=== PATIENT | female | born 1975 | race Asian ===

== ENCOUNTER 2018-05-14 06:35 | Outpatient (CLI) | payer OTHER ==
--- NOTE | 2018-05-14 08:46 | ULT ---
RIGHT UPPER QUADRANT ULTRASOUND: HISTORY: Right upper quadrant pain. FINDINGS: The liver, spleen, kidneys, pancreas, and visualized portions of the aorta and IVC appear normal. No shadowing gallstones, bladder wall thickening, or pericholecystic fluid is seen. The common duct me asures 3 mm in diameter. There is a 6 x 6 x 8 mm echogenic nonshadowing focus arising from the wall of the gallbladder without mobility, consistent with polyp. No free fluid is seen. IMPRESSION: An 8 mm gallbladder polyp. Surgical consultation is recommended. POS: [facility]
== END 2018-05-14 06:36 | disposition home or self-care (01) ==
LOC: BICULT 06:35
PROVIDERS: ATTEND Internal Medicine
DX: R10.84 Generalized abdominal pain (principal); K82.4 Cholesterolosis of gallbladder
CPT/HCPCS: 76700

== ENCOUNTER 2018-06-05 06:13 | Day surgery (SDC) | payer OTHER ==
[2018-06-04 15:56] VITALS: BMI 30.1
[2018-06-05 07:01] LABS: #Eosinphils 0.1 thou/uL (0.0-0.7); #Lymphocytes 1.5 thou/uL (1.20-3.40); #Monocytes 0.4 thou/uL (0.11-0.59); #Neutrophils 4.5 thou/uL (1.40-6.50); %Basophils 0.3 % (0.0-1.0); %Eosinophils 1.8 % (0.0-10.0); %Lymphocytes 23.2 % (21.0-51.0); %Monocytes 5.8 % (0.0-10.0); %Neutrophils 68.9 % (42.0-75.0); Hemoglobin 12.2 g/dL (12.0-16.0); Mean Corpuscular HGB CONC 30.8 g/dL (32.0-36.0); Mean Corpuscular Hemoglobin 21.6 pg (27.0-31.0); Mean Platelet Volume 8.2 fL (7.4-10.4); Platelet Count 333 thou/uL (130-400); RBC Distribution Width 12.5 % (11.5-14.5); Red Blood Cell (RBC) Count 5.67 mill/uL (4.20-5.40); White Blood Cell (WBC) Count 6.5 thou/uL (4.8-10.8)
[2018-06-05] MEDS ORDERED: CEFAZOLIN 2 GM/50 ML BAG ONE (07:06)
[2018-06-05] MEDS ORDERED: Midazolam HCl 2 mg/2 ml Vial ONE (07:16)
[2018-06-05] MEDS ORDERED: Fentanyl 100 MCG/2 ML VIAL ONE ×3 (07:16→10:53)
[2018-06-05 07:19] LABS: Anion Gap 13 mmol/L (10-20); BUN (Urea Nitrogen) 11 mg/dL (7.0-18.7); Calc. Creatinine Clearance 105 mL/min (70-130); Calcium 9.5 mg/dL (7.8-10.44); Carbon Dioxide 24 mmol/L (22-29); Chloride 107 mmol/L (98-107); Estimated GFR-MDRD 73; Glucose 104 mg/dL (70-105); Potassium 3.8 mmol/L (3.5-5.1); Sodium 140 mmol/L (136-145)
[2018-06-05 07:26] LABS: Hypochromia SLIGHT = 6-15 cells (100X) (0-5/hpf); MDiff Complete? YES; Microcytosis MODERATE=15-30 cells (100X) (0-5/hpf); PLT Morphology Comment Appears Adequate; Polychromasia SLIGHT = 2-3 cells (100X) (0-2/hpf)
[2018-06-05] MEDS ORDERED: Bupivacaine/Epinephrine 0.25% 30 ML VIAL ONE (07:50)
[2018-06-05 08:21] LABS: ALT (SGPT) 10 U/L (8-55); AST (SGOT) 18 U/L (5-34); Albumin 4.5 g/dL (3.5-5.0); Alkaline Phosphatase 65 U/L (40-150); Bilirubin, Total 0.4 mg/dL (0.2-1.2); Globulin 3.6 g/dL (2.4-3.5); Protein, Total 8.1 g/dL (6.0-8.3)
[2018-06-05] MEDS ORDERED: SUGAMMADEX SODIUM 200 MG/2 ML VIAL ONE (10:03)
[2018-06-05] MEDS ORDERED: HYDROcodone/Acetaminophen 5/325 mg Tablet ONE (13:53)
[2018-06-05] MEDS ORDERED: Dexamethasone 20 MG/5 ML VIAL ONE (16:28)
[2018-06-05] MEDS ORDERED: Glycopyrrolate 0.2 MG/ML 5 ML SYRINGE ONE (16:28)
[2018-06-05] MEDS ORDERED: Ondansetron PF 4 MG/2 ML Vial ONE (16:28)
[2018-06-05] MEDS ORDERED: Lidocaine 1% PF 5 ML VIAL ONE (16:28)
[2018-06-05] MEDS ORDERED: PROPOFOL 200 MG/20 ML VIAL ONE (16:28)
--- NOTE | 2018-06-10 09:02 | PDOC.OP ---
Operative Note - Operative Note Operative Note: PROCEDURE: Laparoscopic cholecystectomy SURGEON: Michelle Zambrano M.D. DATE OF PROCEDURE: 06/05/2018 PREOPERATIVE DIAGNOSIS: Cholecystitis with possible gallbladder polyp versus adherent sludge POSTOPERATIVE DIAGNOSIS: Cholecystitis with possible gallbladder polyp versus adherent sludge, extensive intra-abdominal adhesions HISTORY: Agent with intermittent upper abdominal pain consistent with cholecystitis. Previous ultrasound showed gallbladder sludge and recent ultrasound showed possible gallbladder polyp versus adherent sludge ball. Recommendation was made to proceed with laparoscopic cholecystectomy for symptomatic relief FINDINGS: Extensive adhesions between the omentum and the anterior abdominal wall as well as the liver and the anterior abdominal wall. Extensive interloop adhesions which did not appear to be obstructing. Extensive pelvic adhesions obscuring the uterus. Spotty dark discoloration of the surface of the cecum and small bowel mesentery. PROCEDURE IN DETAIL: After informed consent was obtained and appropriate preoperative antibiotics were administered, the patient was taken to the operating room and placed in the supine position and general endotracheal anesthesia was administered. The stomach was decompressed with an OG tube and the abdomen was prepped and draped in standard sterile fashion. Local anesthesia was infused to the skin and subcutaneous tissues at the umbilical level. A transverse skin incision was made. The fascia was elevated and a Veress needle was placed into the abdominal cavity without difficulty. Opening pressure was less than 5 and carbon dioxide gas easily insufflated to an intra- abdominal pressure of 15, which the patient tolerated well. The Veress needle was withdrawn and a [place] port advanced under direct vision. The abdominal cavity was carefully examined. There was no evidence of Veress needle or of trocar injury but the patient was noted to have extensive intra-abdominal adhesions with the omentum and transverse colon adherent to the anterior abdominal wall and obscuring the liver and gallbladder. Dissecting port was placed through a clear portion of the anterior abdominal wall in the left lateral abdomen under direct laparoscopic vision and the adhesions taken down through the avascular plane using careful electrocautery as necessary. There was some insufflation into the omentum but the Veress needle and trocar were not in proximity to the transverse colon and there was no evidence of injury to that structure. The underlying small bowel loops looked normal although there was some bleeding from the omentum which had dripped down. This was irrigated clear and careful examination of the underlying small bowel loops was done and no evidence of injury seen. Once the omental adhesions were taken down and the liver exposed, the patient was noted to have extensive adhesions between the omentum and the liver and the liver and the anterior abdominal wall. The left lateral lobe of the liver was densely adherent to the anterior abdominal wall and these adhesions were not taken down. The liver to the right of the falciform ligament was mobilized off of the anterior abdominal wall to prevent traction injuries during the laparoscopic cholecystectomy. In addition the omentum was mobilized off of the liver edge and the gallbladder exposing that structure. Local anesthesia was infused to the skin and subcutaneous tissues at the epigastric, right upper quadrant, and right lateral abdominal sites and trocars were placed under direct vision of the laparoscope. The fundus of the gallbladder was grasped and retracted superiorly. The remaining omental adhesions were taken down exposing the anterior wall of the gallbladder. The infundibulum was grasped and retracted laterally. The serosa was stripped inferiorly at the level of the neck of the gallbladder exposing the cystic duct and artery which were traced clearly to their insertion in the gallbladder. Critical view of safety was obtained and the cystic duct and artery were clipped and divided between clips. The gallbladder was then dissected free of the gallbladder bed using hook electrocautery. Prior to complete removal of the gallbladder from the gallbladder bed, the area of the cystic duct and artery stumps was examined. The clips were in good position completely across these structures and there was no bleeding and no leakage of bile. The gallbladder was then placed into an EndoCatch bag and drawn out through the epigastric incision. The epigastric trocar was replaced and the operative site easily irrigated to clear. There was no significant bleeding or spillage of bile. The epigastric trocar was removed and the fascia closed under direct laparoscopic vision with a 0 Vicryl suture on a GraNee needle in a figure-of- eight manner with excellent technical result. The remainder of the abdomen was again examined. The patient was noted to have spotty discoloration of the surface of her cecum and small bowel mesentery. This was light brown in color and appeared chronic. She was also noted to have extensive interloop adhesions of the small intestine but none of these appeared obstructing. The right fallopian tube appeared normal and part of the right ovary was able to be seen but there were dense adhesions in the pelvis obscuring the uterus and the left ovary. The right upper quadrant and right lateral abdominal trocars were removed and hemostasis verified. Carbon dioxide gas was allowed to desufflate through the umbilical trocar which was then removed. The skin incisions were closed with 4-0 subcuticular Monocryl sutures and Dermabond dressings were placed. The patient was extubated and taken to the recovery room in good condition. There were no complications. ESTIMATED BLOOD LOSS: Minimal. SPECIMEN : Gallbladder and contents.
== END 2018-06-05 14:16 | disposition home or self-care (01) ==
LOC: SDC 06:13
PROVIDERS: ATTEND Surgery
PROC: 0FT44ZZ Resection of Gallbladder, Percutaneous Endoscopic Approach (ICD-10-PCS; principal; 2018-06-05)
DX: K81.1 Chronic cholecystitis (principal); K66.0 Peritoneal adhesions (postprocedural) (postinfection); M06.9 Rheumatoid arthritis, unspecified; K21.9 Gastro-esophageal reflux disease without esophagitis; Z79.899 Other long term (current) drug therapy
CPT/HCPCS: 36415; 85025; 88304; 96374; J0131; J1100; J2001; J2250; J2405; J2704; J3010

== ENCOUNTER 2022-05-15 08:37 | Outpatient (CLI) | payer BC | END 2022-05-15 08:38 | disposition home or self-care (01) | LOC: ULT 08:37 | PROVIDERS: ATTEND Internal Medicine | DX: R10.9 Unspecified abdominal pain (principal); Z90.49 Acquired absence of other specified parts of digestive tract | CPT/HCPCS: 76700 ==

== ENCOUNTER 2022-12-19 12:50 | Outpatient (CLI) | payer BC | END 2022-12-19 12:51 | disposition home or self-care (01) | LOC: BICMAMMO 12:50 | PROVIDERS: ATTEND Internal Medicine | DX: Z12.31 Encounter for screening mammogram for malignant neoplasm of breast (principal) | CPT/HCPCS: 77063; 77067 ==

== ENCOUNTER 2023-12-17 12:31 | Outpatient (CLI) | payer BC ==
[~2023-12-17 12:31] MED LIST: Iopamidol 370 76% 100 ML VIAL ONE
== END 2023-12-17 12:32 | disposition home or self-care (01) ==
LOC: BICCT 12:31
PROVIDERS: ATTEND Internal Medicine
DX: R91.1 Solitary pulmonary nodule (principal); R93.89 Abnormal findings on diagnostic imaging of other specified body structures
CPT/HCPCS: 71260; Q9967

== ENCOUNTER 2023-12-25 08:28 | Outpatient (CLI) | payer BC | END 2023-12-25 08:29 | disposition home or self-care (01) | LOC: RAD 08:28 | PROVIDERS: ATTEND Internal Medicine Critical Care Medicine | DX: R06.00 Dyspnea, unspecified (principal); R91.8 Other nonspecific abnormal finding of lung field | CPT/HCPCS: 71046 ==

== ENCOUNTER 2024-01-15 08:45 | Outpatient (CLI) | payer BC | END 2024-01-15 08:46 | disposition home or self-care (01) | LOC: PET 08:45 | PROVIDERS: ATTEND Internal Medicine Critical Care Medicine | DX: R91.1 Solitary pulmonary nodule (principal) | CPT/HCPCS: 78815; A9552 ==

== ENCOUNTER 2024-01-17 22:10 | Emergency (ER) | payer BC | END 2024-01-18 00:58 | disposition home or self-care (01) | LOC: ERS 22:10 | DX: S92.322A Displaced fracture of second metatarsal bone, left foot, initial encounter for closed fracture (principal); X58.XXXA Exposure to other specified factors, initial encounter | CPT/HCPCS: 29515 ==

== ENCOUNTER 2024-01-25 05:46 | Day surgery (SDC) | payer BC ==
[2024-01-24 15:19] VITALS: BMI 29.2
[2024-01-25] MEDS ORDERED: CEFAZOLIN 2 GM VIAL ONE (07:06)
[2024-01-25] MEDS ORDERED: Sodium Chloride 0.9% 100 ML ONE (07:06)
[2024-01-25] MEDS ORDERED: Midazolam HCl 2 mg/2 ml Vial ONE (07:15)
[2024-01-25] MEDS ORDERED: fentaNYL 50 mcg/mL 1 mL Vial ONE ×3 (07:15→09:11)
[2024-01-25] MEDS ORDERED: Bupivacaine PF 0.5% 30 ML VIAL ONE (07:15)
[2024-01-25] MEDS ORDERED: PROPOFOL 20 ML ONE (07:36)
[2024-01-25] MEDS ORDERED: Dexamethasone 4 mg/ml Vial ONE (07:36)
[2024-01-25] MEDS ORDERED: Ketorolac Tromethamine 30 MG (1 mL) VIAL ONE (07:36)
[2024-01-25] MEDS ORDERED: Lidocaine 1% PF 5 ML VIAL ONE (07:36)
[2024-01-25] MEDS ORDERED: Ondansetron PF 4 MG/2 ML Vial ONE (07:36)
[2024-01-25] MEDS ORDERED: fentaNYL PF 100 MCG/2 ML SYRINGE ONE (08:07)
[2024-01-25] MEDS ORDERED: Meperidine HCl/PF 25 MG (1 mL) VIAL ONE (08:47)
== END 2024-01-25 11:30 | disposition home or self-care (01) ==
LOC: SDC 05:46
PROVIDERS: ATTEND Orthopaedic Surgery
PROC: 0QSM04Z Reposition Left Tarsal with Internal Fixation Device, Open Approach (ICD-10-PCS; principal; 2024-01-25)
DX: S92.301A Fracture of unspecified metatarsal bone(s), right foot, initial encounter for closed fracture (principal); D64.9 Anemia, unspecified; M06.9 Rheumatoid arthritis, unspecified; Z90.49 Acquired absence of other specified parts of digestive tract; Z98.890 Other specified postprocedural states; X58.XXXA Exposure to other specified factors, initial encounter
CPT/HCPCS: C1713; J0665; J1100; J1885; J2175; J2250; J2405; J2704; J3010

== ENCOUNTER 2024-06-03 10:05 | Day surgery (SDC) | payer BC ==
[2024-06-02 09:47] VITALS: BMI 30.1
[2024-06-03] MEDS ORDERED: CEFAZOLIN 2 GM VIAL ONE (10:25)
[2024-06-03] MEDS ORDERED: PROPOFOL 20 ML ONE (11:06)
[2024-06-03] MEDS ORDERED: fentaNYL 50 mcg/mL 1 mL Vial ONE ×2 (11:07→12:16)
[2024-06-03] MEDS ORDERED: Ondansetron PF 4 MG/2 ML Vial ONE (11:21)
[2024-06-03] MEDS ORDERED: Dexamethasone 20 MG/5 ML VIAL ONE (11:21)
[2024-06-03] MEDS ORDERED: fentaNYL PF 100 MCG/2 ML SYRINGE ONE (11:57)
[2024-06-03] MEDS ORDERED: HYDROmorphone 0.5 MG/0.5 ML SYRINGE ONE (12:17)
[2024-06-03] MEDS ORDERED: Ketorolac Tromethamine 30 MG (1 mL) VIAL ONE (13:12)
[2024-06-03] MEDS ORDERED: traMADol HCl 50 MG TAB ONE (14:10)
== END 2024-06-03 15:02 | disposition home or self-care (01) ==
LOC: SDC 10:05
PROVIDERS: ATTEND Orthopaedic Surgery
PROC: 0SP Lower Joints, Removal (ICD-10-PCS; principal; 2024-06-03)
DX: S93.325D Dislocation of tarsometatarsal joint of left foot, subsequent encounter (principal); M06.9 Rheumatoid arthritis, unspecified; D64.9 Anemia, unspecified; K21.9 Gastro-esophageal reflux disease without esophagitis; Z90.49 Acquired absence of other specified parts of digestive tract; Z79.899 Other long term (current) drug therapy; X58.XXXD Exposure to other specified factors, subsequent encounter
CPT/HCPCS: J1100; J1885; J2405; J2704; J3010